=== PATIENT | male | born 1980 | race Caucasian/White ===

== ENCOUNTER 2022-08-18 18:47 | Emergency (ER) | payer MEDICAID ==
[~2022-08-18] VITALS: Ht 180.3 cm; Wt 113.4 kg
[2022-08-18 19:24] VITALS: BP_SYST 143
[2022-08-18 19:28] LABS: BASOPHILS # (AUTO) 0.1 K/uL (0.0-0.2); EOSINOPHILS # (AUTO) 0.2 K/uL (0.0-0.4); EOSINOPHILS % (AUTO) 2.2 % (0.0-4.0); HEMATOCRIT 46.1 % (36-54); HEMOGLOBIN 15.1 g/dL (14.0-18.0); LYMPHOCYTES # (AUTO) 2.1 K/uL (1.0-5.5); LYMPHOCYTES % (AUTO) 25.2 % (20.5-51.5); MEAN CORPUSCULAR HEMOGLOBIN 28 pg (27-31); MEAN CORPUSCULAR HGB CONC 33 % (32-36); MEAN CORPUSCULAR VOLUME 85 fL (79.0-98.0); MONOCYTES # (AUTO) 0.6 K/uL (0.0-1.0); MONOCYTES % (AUTO) 7.3 % (1.7-9.3); NEUTROPHILS # (AUTO) 5.3 K/uL (1.8-7.7); NEUTROPHILS % (AUTO) 64.3 % (40.0-70.0); PLATELET COUNT (AUTO) 252 K/uL (130-430); RED BLOOD CELL COUNT(AUTO) 5.42 MIL/uL (4.2-6.2); RED CELL DISTRIBUTION WIDTH 13.9 % (9.0-15.0); WHITE BLOOD COUNT (AUTO) 8.2 K/uL (4.8-10.8)
--- NOTE | 2022-08-18 19:31 | NUR ---
Patient triaged and placed in waiting room. VSS and patient appears in no acute distress at this time. Accompanied by self, awaiting available bed, and MD Bernabe notified of need for MSE.
[2022-08-18 19:59] LABS: ANION GAP 4 (5-15); CHLORIDE 103 mmol/L (98-107); GLUCOSE 256 mg/dL (70-99); UREA NITROGEN, BLOOD 25 mg/dL (8-21)
--- NOTE | 2022-08-18 20:02 | NUR ---
URINE COLLECTED AND SENT TO LAB.
[2022-08-18 20:16] LABS: ALANINE AMINOTRANSFERASE 39 U/L (12-78); AMYLASE 33 U/L (0-100); ASPARTATE AMINOTRANSFERASE 35 U/L (10-37); C-REACTIVE PROTEIN QUANT 0.3 mg/dL (0-0.5); LACTATE DEHYDROGENASE 257 U/L (85-227); LIPASE 59 U/L (73-393); TOTAL BILIRUBIN 1.2 mg/dL (0.0-1.0)
[2022-08-18 20:20] LABS: GFR AFRICAN AMERICAN 95 mL/min (>90)
--- NOTE | 2022-08-18 20:20 | NUR ---
MD Bernabe examining pt.
[2022-08-18] MEDS ORDERED: FLEETMO RC (20:28)
[2022-08-18] MEDS ORDERED: MAGN296S8 PO (20:28)
--- NOTE | 2022-08-18 20:34 | NUR ---
Patient given written and verbal discharge instructions and verbalizes understanding. ER MD Bernabe discussed with patient the results and treatment provided. Patient in stable condition. ID arm band removed. Rx of Fleet enema and Mag citrate sent to preferred pharmacy. Patient educated on pain management and to follow up with PMD. Opportunity for questions provided and answered. Medication side effect fact sheet provided.
[2022-08-18 20:37] VITALS: BP_SYST 139
[2022-08-18 21:02] LABS: ACETONE, SERUM NEGATIVE (NEGATIVE)
== END 2022-08-18 20:37 | disposition home or self-care (01) ==
LOC: SED 18:47
DX: K59.00 Constipation, unspecified (principal); R10.30 Lower abdominal pain, unspecified; E11.9 Type 2 diabetes mellitus without complications; I10 Essential (primary) hypertension; Z79.899 Other long term (current) drug therapy
CPT/HCPCS: 36415; 76376; 80053; 82009; 82150; 83605; 83615; 83690; 85025; 86140; 99284